=== PATIENT | female | born 1985 | race Caucasian/White ===

== ENCOUNTER 2016-06-20 14:34 | Emergency (ER) | payer OTHER ==
[2016-06-20 14:48] VITALS: BP 127/78
--- NOTE | 2016-06-20 15:00 | ERNOTE ---
ENT HPI Date of Service: 06/20/16 Presenting Symptoms: other - sore throat Time Seen by Provider: 06/20/16 14:55 Source: patient - Immun/Allergies/Home Medications Immunizations: IMMUNIZATION HX Immunizations Up to Date Yes History of Influenza Vaccine No Hx Pneumococcal Vaccination No Allergies/Adverse Reactions: Allergies Allergy/AdvReac Type Severity Reaction Status Date / Time No Known Allergies Allergy Verified 06/20/16 14:48 Home Medications: HOME MEDICATIONS Ibuprofen [Motrin] 800 mg PO TID PRN #30 tab 06/20/16 [Last Taken Unknown] - History of Present Illness Narrative: body aches and sore throat for one week - Patient's Past Medical History Patient History - Medical: Anxiety, Bipolar, Depression, Migraines Patient History - Cardiac/Respiratory: No pertinent hx Patient History - Cancer: No Hx of Cancer Patient History - Surgical Procedures: D & C, T & A, Other Patient History - Other: None LMP (Calendar): 06/06/16 - Social History Living Situations: home Abuse History: No History of abuse Psych History: No pertinent hx Smoking Status: Current every day smoker Have you smoked in the past 12 months: Yes Alcohol Use: rarely Drug Use: none - Immunizations Immunizations Up to Date: Yes Hx Pneumococcal Vaccination: No History of Influenza Vaccine: No ED Progress - Vital Signs Vital Signs: Vital Signs 06/20/16 14:40 Temperature 35.7 C L Pulse Rate 93 Respiratory 16 Rate Blood Pressure 127/78 O2 Sat by Pulse 99 Oximetry - Progress/Reassessment Chief Complaint: Sore Throat Departure Clinical Impression: Viral syndrome - Departure Disposition: Home self-care Condition: Good Instructions: Viral Respiratory Infection, [id number], Pharyngitis, Easy-to- Read Prescriptions: Ibuprofen [Motrin] 800 mg PO TID PRN #30 tab PRN Reason: Pain
== END 2016-06-20 15:05 | disposition home or self-care (01) ==
LOC: ER 14:34
DX: B34.9 Viral infection, unspecified (principal); F17.210 Nicotine dependence, cigarettes, uncomplicated

== ENCOUNTER 2016-06-26 14:36 | Emergency (ER) | payer OTHER ==
[2016-06-26 14:55] VITALS: BP 120/65
--- OUTSIDE RECORDS SUMMARY | 2016-06-26 15:14 | XMS REPORT | Continuity of Care Document ---
:1985 Author Organization [facility] ([facility]) Address [address] [place] [address] Phone [phone] Care Team Providers Name Role Phone [facility] [id number] Primary Care Provider [phone] Source Comments This disclosure is being made pursuant to the Care Everywhere program, applicable federal and state laws, and may not contain all informaitonavailable regarding this patient.[facility] ([facility]) Active Allergies and Adverse Reactions No Active Allergies Current Medications Prescription Sig. Disp. Refills Start Date End Date Status enoxaparin 30 inject 90 mg 60 Syringe 6 11/14/2010 Active mg/0.3 mL injection subcutaneously every syringe 12 hours. Indications: Deep Venous Thrombosis ferrous sulfate 325 Take 1 Tab by mouth 30 Tab 3 11/14/2010 Active mg (65 mg iron) daily. Indications: tablet Iron Deficiency Anemia oxyCODONE-acetamino Take 1 Tab by mouth 45 Tab 0 11/14/2010 Active phen 5-325 mg per every 4 hours as tablet needed. Indications: Pain Active Problems Problem Noted Date 25 yo @ ___ by LMP=9 wk US: transfer from Dr. Savage in [place] for DVT DVT 11/13/10 left lower leg. Started Lovenox 90mg BID 11/13/2010 Asthma: albuterol as needed 11/13/2010 GERD: On pepcid 11/13/2010 Hx of Depression with drug use 2055-1317 with inpatient rehab treatment 2010. UDS obtained 11/13- +THC w/ confirm. LEEP 2008: normal pap 06/22/10 06/03/2008 Currently Estimated Date of Delivery Comments Yes Resolved Problems Problem Noted Date Resolved Date Scanty or infrequent menstruation 06/03/2008 11/13/2010 Papanicolaou smear of cervix with atypical squamous cells of 04/20/200811/13 undetermined significance (ASC-US) Immunizations Name Dates Previously Given Next Due HPV, quadrivalent (Gardasil) 12/16/2008,08/15/2008,06/03/2008 Social History Tobacco Use Types Packs/Day Years Used Date Never Smoker Last Filed Vital Signs Vital Sign Reading Time Taken Blood Pressure 116/76 11/14/2010 11:40 AM CDT Pulse 117 11/14/2010 11:40 AM CDT Temperature 37.2 C (99 F) 11/14/2010 11:40 AM CDT Respiratory Rate 20 11/14/2010 11:40 AM CDT Height 1.651 m (5' 5") 11/13/2010 4:20 PM CDT Weight 89.812 kg (198 lb) 11/13/2010 4:20 PM CDT Body Mass Index 32.95 11/13/2010 4:20 PM CDT Oxygen Saturation 99% 11/13/2010 8:25 PM CDT Plan of Care Health Maintenance Due Date Last Done Comments Hepatitis B Vaccine (1 of 3 - Primary 1987 Series) Tdap Vaccine 1998 MMR Vaccine 2005 Td Vaccine 2005 Varicella Vaccine (1 of 2 - Adult - 2005 No Evidence of Immunity) Pneumococcal Vaccine (1 of 1 - 2006 PPSV23) Cervical Cancer Screening 12/17/2011 12/16/2008, 12/16/2008, 04/20/2008 Lipid Disorder Screening 12/16/2013 12/16/2008 Influenza Vaccine: Seasonal (#1) 12/18/2015 Results from Last 3 Months Not on file
[2016-06-26 15:23] LABS: Urine Bilirubin Negative (NEGATIVE); Urine Blood 250 /ul (NEGATIVE); Urine Ketone 5 mg/dL (NEGATIVE); Urine Nitrite Negative (NEGATIVE); Urine Protein 100 mg/dL (NEGATIVE); Urine Specific Gravity >=1.030 SP.GR. (1.005-1.010); Urine Urobilinogen Normal (NORMAL); Urine pH 6.5 pH (5.0-7.0)
[2016-06-26 15:33] LABS: Urine Appearance Cloudy; Urine Bacteria 2+; Urine WBC None Seen /hpf (0-5)
[2016-06-26 15:34] LABS: Urine RBC >50 /hpf (0-5)
--- NOTE | 2016-06-26 15:45 | ERNOTE ---
ER Female HPI Date of Service: 06/26/16 Stated Complaint: BLOOD IN URINE Presenting Symptoms: other - Hematuria Time Seen by Provider: 06/26/16 15:04 Source: patient, RN notes reviewed Exam Limitations: no limitations Immunizations: IMMUNIZATION HX Immunizations Up to Date Yes History of Influenza Vaccine No Hx Pneumococcal Vaccination No Allergies/Adverse Reactions: Allergies No Known Allergies Allergy (Verified 06/26/16 14:55) Home Medications: HOME MEDICATIONS Vit A/Vitamin D3/E/Aloe V/Znox [Periguard Ointment] 5 gm TP DAILY 06/26/16 [ Last Taken Unknown] - History of Present Illness Narrative: 31 y/o female ambulatory to the ED for blood in her urine that she first noticed this morning. At first she thought she was having menstrual bleeding. She inserted a tampon but it did not have any blood on it when she removed it later. The amount of blood in her urine has varied throughout the day. She denies any recent urinary tract infections or other urinary problems. She has a Paraguard and has irregular menses. Sexual [place] History: Present: less than 2 months ago, single partner Associated Symptoms: Present: abdominal pain. Absent: fever/chills, nausea, vomiting, dysuria, urinary frequency, loss of bladder control, low back pain Prior Treatment: Absent: recently seen, currently on antibiotics Review of Systems - Review of Systems Constitutional: Absent: recent illness, fever, chills EYE: Present: no symptoms reported ENT: Present: no symptoms reported Respiratory: Absent: shortness of breath, cough Cardiology: Absent: chest pain, syncope Gastrointestinal/Abdominal: Present: See HPI Genitourinary: Present: See HPI Musculoskeletal: Present: See HPI Skin: Absent: rash, lesions Neurological: Absent: headache, dizziness/light-headedness Endocrine: Present: no symptoms reported Hematologic/Lymphatic: Absent: easy bruising, easy bleeding Psych: Present: no symptoms reported - Patient's Past Medical History Patient History - Medical: Anxiety, Bipolar, Depression, Migraines Patient History - Cardiac/Respiratory: No pertinent hx Patient History - Cancer: No Hx of Cancer Patient History - Surgical Procedures: D & C, T & A, Other Patient History - Other: None LMP (Calendar): 06/06/16 - Social History Living Situations: home Abuse History: No History of abuse Psych History: No pertinent hx Smoking Status: Current every day smoker Have you smoked in the past 12 months: Yes Alcohol Use: rarely Drug Use: none - Immunizations Immunizations Up to Date: Yes Hx Pneumococcal Vaccination: No History of Influenza Vaccine: No Physical Exam - Physical Exam General Appearance: Present: wd/wn, alert, no apparent distress Neck: Present: normal inspection, nontender, supple Respiratory: Present: no respiratory distress, normal breath sounds, no accessory muscle use, lungs clear Cardiovascular/Chest: Present: regular rate, rhythm, no murmur, normal peripheral pulses Gastrointestinal/Abdominal: Present: normal bowel sounds, nondistended, soft, tenderness - mild, suprapubic Back Exam: Present: normal inspection, no CVA tenderness Neurological Exam: Present: alert, oriented, normal mood/affect, no motor/ sensory deficits Skin Exam: Present: normal color, warm/dry ED Progress - Results and Orders Patient's Lab Results:: I have reviewed the patient's lab results. - Vital Signs Patient's Vital Signs:: I have reviewed the patient's vital signs. Vital Signs: Vital Signs 06/26/16 14:52 Temperature 35.6 C L Pulse Rate 96 Respiratory 12 Rate Blood Pressure 120/65 O2 Sat by Pulse 99 Oximetry - Progress/Reassessment Chief Complaint: Genitourinary Problem Progress:: Unchanged Plan - Plan Plan: Patient states that she does not have the money to get a prescription so will give Rocephin IM here pending urine culture results. Departure Clinical Impression: Hematuria due to acute cystitis - Departure Disposition: Home Follow Up Needed Condition: Stable Instructions: Urinary Tract Infection, Adult, [id number] Additional Instructions: Push fluids Return for fever, vomiting, or severe pain
[2016-06-26] MEDS ORDERED: LIDOCAINE HCL 20 ML VIAL ONE (15:58)
== END 2016-06-26 16:07 | disposition home or self-care (01) ==
LOC: ER 14:36
DX: N30.01 Acute cystitis with hematuria (principal); F17.210 Nicotine dependence, cigarettes, uncomplicated

== ENCOUNTER 2017-01-21 14:39 | Emergency (ER) | payer SELFPAY ==
[2017-01-21] MEDS ORDERED: FLUCONAZOLE 100 MG TABLET PO ONE (15:36)
[2017-01-21] MEDS ORDERED: FLUCONAZOLE 100 MG TABLET ONE (15:48)
--- NOTE | 2017-01-21 15:49 | ERNOTE ---
ENT HPI Presenting Symptoms: other - sore throat Time Seen by Provider: 01/21/17 15:04 Source: patient Exam Limitations: no limitations - Immun/Allergies/Home Medications Immunizations: IMMUNIZATION HX Immunizations Up to Date Yes History of Influenza Vaccine No Hx Pneumococcal Vaccination No Allergies/Adverse Reactions: Allergies Allergy/AdvReac Type Severity Reaction Status Date / Time No Known Allergies Allergy Verified 01/21/17 14:54 Home Medications: HOME MEDICATIONS NK [No Home Medication] 01/21/17 [Last Taken Unknown] - History of Present Illness Narrative: Patient recently had to take out her tongue stud is starting to irritate her mouth. She now complains of small ulcers on the buccal surface as well as some whitish covering on her tongue. She rates the discomfort as being moderate in intensity. Severity: Present: mild ENT Location: Present: other - tongue and inner cheeks Prearrival Treatment: Present: no prearrival treatment Modifying Factors - Improves: Reports: nothing Modifying Factors - Worsens: Reports: other - she suspects leaving the tongue stud in Associated Symptoms - ENT: Reports: denies symptoms Review of Systems - Review of Systems Constitutional: Present: See HPI EYE: Present: no symptoms reported ENT: Present: See HPI Respiratory: Present: no symptoms reported Cardiology: Present: no symptoms reported Gastrointestinal/Abdominal: Present: no symptoms reported Genitourinary: Present: no symptoms reported Musculoskeletal: Present: no symptoms reported Skin: Present: no symptoms reported Neurological: Present: no symptoms reported Endocrine: Present: no symptoms reported Hematologic/Lymphatic: Present: no symptoms reported Psych: Present: no symptoms reported - Patient's Past Medical History Patient History - Medical: Anxiety, Bipolar, Depression, Migraines Patient History - Cardiac/Respiratory: No pertinent hx Patient History - Cancer: No Hx of Cancer Patient History - Surgical Procedures: D & C, T & A, Other Patient History - Other: None LMP (Calendar): 06/06/16 - Social History Living Situations: home Abuse History: No History of abuse Psych History: No pertinent hx Alcohol Use: rarely Drug Use: none - Immunizations Immunizations Up to Date: Yes Hx Pneumococcal Vaccination: No History of Influenza Vaccine: No Physical Exam - Physical Exam General Appearance: Present: wd/wn, alert, mild distress Eye Exam: Normal inspection: bilateral, PERRL: bilateral Ears, Nose, Throat: Present: normal pharynx, other - when his coat on the tongue and aphthous ulcers on the inner buccal surface lower Neck: Present: normal inspection, nontender Respiratory: Present: no respiratory distress, normal breath sounds, no accessory muscle use, chest nontender, lungs clear Cardiovascular/Chest: Present: regular rate, rhythm, no murmur, normal peripheral pulses Gastrointestinal/Abdominal: Present: normal bowel sounds, nontender, nondistended, soft, no organomegaly Rectal Exam: Present: deferred Back Exam: Present: normal inspection, normal range of motion Extremity Exam: Present: normal inspection, non-tender, no edema, normal range of motion Neurological Exam: Present: alert, oriented, normal mood/affect Skin Exam: Present: normal color, warm/dry Lymphatic Exam: Present: no adenopathy ED Progress - Results and Orders Patient's Lab Results:: I have reviewed the patient's lab results. - Vital Signs Patient's Vital Signs:: I have reviewed the patient's vital signs. Vital Signs: Vital Signs 01/21/17 14:51 Temperature 36.8 C Pulse Rate 107 H Respiratory 12 Rate Blood Pressure 133/89 O2 Sat by Pulse 100 Oximetry - Progress/Reassessment Chief Complaint: Sore Throat Plan - Plan Plan: She was advised to make sure she leaves the tongue stud out now. She was given 100 mg of Diflucan by mouth here in the ED and she will use Benadryl elixir as a swish and swallow to help minimize any further reaction. Departure Clinical Impression: Thrush, oral, Aphthous ulcer - Departure Disposition: Home self-care Condition: Good Instructions: Thrush, Adult, [id number], Stomatitis, [id number] Additional Instructions: Use Benadryl elixir as a swish and swallow
[2017-01-21 17:43] VITALS: BP 122/79
== END 2017-01-21 15:50 | disposition home or self-care (01) ==
LOC: ER 14:39
DX: B37.9 Candidiasis, unspecified (principal); K12.0 Recurrent oral aphthae

== ENCOUNTER 2017-01-22 11:34 | Emergency (ER) | payer SELFPAY ==
[2017-01-22 11:34] VITALS: BP 122/79
[2017-01-22] MEDS ORDERED: DIPHTH,PERTUSS(ACELL),TET VAC 0.5 ML VIAL IM ONE ×2 (12:28→13:00)
--- NOTE | 2017-01-22 12:33 | ERNOTE ---
Lower Extremity HPI - General Lower Extremities Pain: knee: right Time Seen by Provider: 01/22/17 11:54 Source: patient Exam Limitations: no limitations - Immun/Allergies/Home Medications Immunizations: IMMUNIZATION HX Immunizations Up to Date Yes History of Influenza Vaccine No Hx Pneumococcal Vaccination No Allergies/Adverse Reactions: Allergies Allergy/AdvReac Type Severity Reaction Status Date / Time No Known Allergies Allergy Verified 01/22/17 11:44 Home Medications: HOME MEDICATIONS Sulfamethoxazole/Trimethoprim [Bactrim Ds] 1 tab PO BID #20 tab 01/22/17 [Last Taken Unknown] traMADol HCL [Ultram] 50 mg PO QID PRN #20 tablet 01/22/17 [Last Taken Unknown] - History of Present Illness Narrative: Patient was walking in an alley last night and tripped over something and incurred an abrasion to her right knee. She rates the pain as at least moderate in intensity and is having some difficulty walking because of the knee pain. Occurred: just prior to arrival Location of Incident: other - street Method of Injury: Reports: fell Reason for Fall: Reports: tripped Loss of Consciousness: Reports: no loss of consciousness Associated Symptoms: Reports: other injuries - painful weightbearing Other Injuries: Reports: none Prior Treament: Reports: recently seen, treated by physician Review of Systems - Review of Systems Constitutional: Present: See HPI EYE: Present: no symptoms reported ENT: Present: no symptoms reported Respiratory: Present: no symptoms reported Cardiology: Present: no symptoms reported Gastrointestinal/Abdominal: Present: no symptoms reported Genitourinary: Present: no symptoms reported Musculoskeletal: Present: See HPI Skin: Present: no symptoms reported Neurological: Present: no symptoms reported Endocrine: Present: no symptoms reported Hematologic/Lymphatic: Present: no symptoms reported Psych: Present: no symptoms reported - Patient's Past Medical History Patient History - Medical: Anxiety, Bipolar, Depression, Migraines Patient History - Cardiac/Respiratory: No pertinent hx Patient History - Cancer: No Hx of Cancer Patient History - Surgical Procedures: D & C, T & A Patient History - Other: None LMP (females 10-50): 3 weeks LMP (Calendar): 06/06/16 - Social History Living Situations: home Abuse History: No History of abuse Psych History: Psychiatric Hx, Hx of Anxiety, Hx of Depression, Hx of Bipolar Disorder Smoking Status: Current every day smoker Have you smoked in the past 12 months: Yes Do you dip or chew tobacco: No Alcohol Use: rarely Drug Use: none - Immunizations Immunizations Up to Date: Yes Hx Pneumococcal Vaccination: No History of Influenza Vaccine: No Physical Exam - Physical Exam General Appearance: Present: wd/wn, alert, moderate distress Head Exam: Present: normal inspection Eye Exam: Normal inspection: bilateral, PERRL: bilateral Ears, Nose, Throat: Present: normal ENT inspection, H, normal pharynx Neck: Present: normal inspection, nontender Respiratory: Present: no respiratory distress, normal breath sounds, no accessory muscle use, chest nontender, lungs clear Cardiovascular/Chest: Present: regular rate, rhythm, no murmur, normal peripheral pulses Gastrointestinal/Abdominal: Present: normal bowel sounds, nontender, nondistended, soft, no organomegaly Rectal Exam: Present: deferred Back Exam: Present: normal inspection, normal range of motion Extremity Exam: Present: decreased range of motion, joint swelling, other - abrasion to the prepatellar area of the right knee Neurological Exam: Present: alert, oriented, normal mood/affect Skin Exam: Present: normal color, warm/dry Lymphatic Exam: Present: no adenopathy ED Progress - Vital Signs Patient's Vital Signs:: I have reviewed the patient's vital signs. Vital Signs: Vital Signs 01/22/17 11:40 Temperature 36.8 C Pulse Rate 112 H Respiratory 17 Rate O2 Sat by Pulse 99 Oximetry - X-Ray X-Ray #1 X-Ray: knee Interpretation: Reviewed by me - Progress/Reassessment Chief Complaint: Lower Extremity Pain/ Injury Plan - Plan Plan: The wound was cleaned in the emergency department, patient will use Polysporin or bacitracin at home on the area and she will be given a brief course of pain medicine and she states the pain is almost unbearable. Departure Clinical Impression: Abrasion - Departure Disposition: Home self-care Condition: Good Instructions: Abrasion, [id number] Additional Instructions: Use either bacitracin or Polysporin on the wound. Apply ice for the next 24 hours, 20 minutes every 2 hours. Prescriptions: Sulfamethoxazole/Trimethoprim [Bactrim Ds] 1 tab PO BID #20 tab traMADol HCL [Ultram] 50 mg PO QID PRN #20 tablet PRN Reason: Moderate Pain
[2017-01-22] MEDS ORDERED: LIDOCAINE 35 APPL TUBE TP ONE (12:48)
== END 2017-01-22 12:35 | disposition home or self-care (01) ==
LOC: ER 11:34
DX: S80.211A Abrasion, right knee, initial encounter (principal); W18.39XA Other fall on same level, initial encounter; Y93.9 Activity, unspecified; Y92.488 Other paved roadways as the place of occurrence of the external cause; F17.200 Nicotine dependence, unspecified, uncomplicated; Z23 Encounter for immunization